=== PATIENT | male | born 1960 | race Caucasian/White ===

== ENCOUNTER 2024-04-06 14:46 | Emergency (ER) | payer SELFPAY ==
[~2024-04-06] VITALS: Ht 175.3 cm; Wt 77.3 kg
[2024-04-06 15:03] VITALS: BP 145/70; PULSE 94; RESP 16; TEMP 98; O2SAT 98
[2024-04-06 15:22] LABS: COVID AG,FIA SOURCE NASAL SWAB
[2024-04-06 15:51] LABS: INFLUENZA TYPE A NEGATIVE FOR TYPE A (NEGATIVE); INFLUENZA TYPE B NEGATIVE FOR TYPE B (NEGATIVE); SARS-COV2 (COVID) ANTIGEN,FIA Negative (Negative)
== END 2024-04-06 16:19 | disposition left against medical advice (07) ==
LOC: EMS 14:46
DX: R05.9 Cough, unspecified (principal); Z20.822 Contact with and (suspected) exposure to COVID-19; Z53.21 Procedure and treatment not carried out due to patient leaving prior to being seen by health care provider
CPT/HCPCS: 87804

== ENCOUNTER 2024-11-07 22:11 | Emergency (ER) | payer SELFPAY ==
[~2024-11-07] VITALS: Ht 177.8 cm; Wt 81.4 kg
[2024-11-07 22:24] VITALS: BP 153/85; PULSE 105; RESP 16; O2SAT 95
== END 2024-11-08 | disposition left against medical advice (07) ==
LOC: EMS 22:12
DX: Z00.8 Encounter for other general examination (principal); Z53.21 Procedure and treatment not carried out due to patient leaving prior to being seen by health care provider
CPT/HCPCS: 99283